=== PATIENT | female | born 1980 | race Caucasian/White ===

== ENCOUNTER 2016-04-07 09:02 | Inpatient (IN) | payer BC, MEDICAID ==
[2016-04-07] MEDS ORDERED: LACTATED RINGERS 1,000 ML ONE (09:34)
[2016-04-07] MEDS ORDERED: LACTATED RINGERS 500 ML IV ONE (09:36)
[2016-04-07] MEDS ORDERED: ePHEDrine SULFATE IV PRN ×2 (09:52→10:02)
[2016-04-07] MEDS ORDERED: NARCAN 2 MG/2 ML IV PRN (09:52)
[2016-04-07] MEDS ORDERED: PITOCin 20 UNIT in NACL 0.9% 1000 ML 1,000 ML IV SCH (10:00)
[2016-04-07] MEDS ORDERED: fentaNYL-BUPIV 2 MCG/ML-0.125% 200 MCG/100 ML BAG EPIDURAL SCH (10:00)
[2016-04-07] MEDS ORDERED: SUBLIMAZE IV ONE (10:00)
[2016-04-07 10:01] LABS: Basophils % (Auto) 0.2 % (0.0-1.8); Eosinophils % (Auto) 0.9 % (0.0-4.3); Hematocrit 37.3 % (30.3-42.9); Hemoglobin 12.4 gm/dl (10.1-14.3); Mean Corpuscular HGB Conc 33 % (30-34); Mean Corpuscular Hemoglobin 31 pg (28-32); Mean Corpuscular Volume 93 fl (79-97); Platelet Count 205 K/mm3 (140-440); Red Cell Distribution Width 14.2 % (13.2-15.2)
[2016-04-07] MEDS ORDERED: BRETHINE SUB-Q PRN (10:02)
[2016-04-07] MEDS ORDERED: MINERAL OIL PO PRN (10:02)
[2016-04-07] MEDS ORDERED: BRETHINE IVP PRN (10:02)
[2016-04-07] MEDS ORDERED: ePHEDrine SULFATE ONE (10:20)
--- NOTE | 2016-04-07 10:26 | History and Physical Report ---
History of Present Illness Date of examination: 04/07/16 Date of admission: 04/07/16 09:17 Chief complaint: contractions History of present illness: Pt c/o contractions that started last pm but worsened this am around 8am. Contractions are every 3 minutes. No ROM, no vaginal bleeding. 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 # 3 Delivery date: 04/18/2015 Weeks Gestation: 38 Delivery type: Vaginal Anesthesia type: epidural Delivery location: [facility] Sex: male weight: 7.56 Name: Sathish Comments: none Past Medical History: Reviewed history from 11/15/2014 and no changes required: Negative Past Medical History Past Surgical History: Reviewed history from 11/15/2014 and no changes required: negative Past Medical History Anesthesia Complications: negative Anemia: negative Autoimmune Disorder: negative Bleeding Disorder: negative Blood Transfusions: negative Breast Disease: negative Diabetes: negative Heart Disease: negative Hypertension: negative Hepatitis/Liver Disease: negative Kidney Disease/UTI: negative Neurologic/Epilepsy/Migraines: negative Phlebitis/Varicosities: negative Psychiatric: negative Pulmonary Disease/Asthma: negative Thyroid Disease: negative Hospitalizations: negative 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 Infection History Hx of STD: none HIV Risk Eval: no Hepatitis B Risk Eval: low risk Personal hx. of genital herpes: no Partner hx. of genital herpes: no Rash, Viral, or Febrile illness since last LMP? no Varicella/Chicken Pox Status: Previous Disease Genetic History Congenital Heart Defect: Mom: no Dad: no Mauri Disease: Mom: no Dad: no Thalassemia Mom: no Dad: no Neural Tube Defect Mom: no Dad: no Down's Syndrome Mom: no Dad: no Romeo-Sachs Mom: no Dad: no Sickle Cell Disease/Trait Mom: no Dad: no Hemophilia Mom: no Dad: no Muscular Dystrophy Mom: no Dad: no Cystic Fibrosis Mom: no Dad: no [place] Chorea Mom: no Dad: no Mental Retardation Mom: no Dad: no Fragile X Mom: no Dad: no Other Genetic/Chromosomal Disorder Mom: no Dad: no Child w/other defect Mom: no Dad: no Enviromental Exposures Xray Exposure: no Medication, drug, or alcohol use since LMP: no Chemical/Other Exposure: no Exposure to Cat Liter: no Hx of Parvovirus (Fifth Disease): no Occupational Exposure to Children: none Active Medications (reviewed today): None Current Allergies (reviewed today): No known allergies Laboratory Results Past History Past Medical History: no pertinent history Past Surgical History: no surgical history 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 Social history: no significant social history, - Obstetrical History Expected Date of Delivery: 04/09/16 Actual Gestation: 39 Week(s) 5 Day(s) : 4 Para: 3 Number of Living Children: 3 Medications and Allergies Allergies Allergy/AdvReac Type Severity Reaction Status Date / Time No Known Allergies Allergy Verified 04/18/15 05:45 Home Medications Medication Instructions Recorded Confirmed Last Taken Type Pnv Plus Multivit Tab 1 tab PO DAILY 04/18/15 04/18/15 1 Day Ago History 1tab Lidocain2.5%/Prilocai2.5% [Emla] 5 gm TP PRN #1 tube 04/19/15 Unknown Rx Active Meds: Active Medications Ephedrine Sulfate (Ephedrine Sulfate) 10 mg IV Q2M PRN PRN Reason: Hypotension Stop: 04/07/16 10:07 Oxytocin 20 unit/ Sodium (Chloride) 1,002 mls @ 0 mls/hr IV DIRECT RADHA PRN Reason: As Directed Fentanyl/Bupivacaine/Sodium Chlor (Fentanyl-Bupiv 2 Mcg/Ml-0.125%) 200 mcg in 100 mls @ 12 mls/hr EPIDURAL TITR RADHA PRN Reason: Protocol Lactated Ringer's (Lactated Ringers) 1,000 mls @ 125 mls/hr IV DIRECT RADHA Oxytocin/Sodium Chloride (Pitocin/Ns 20 Unit/1000ml Drip) 20 units in 1,000 mls @ 125 mls/hr IV DIRECT RADHA Oxytocin/Sodium Chloride (Pitocin/Ns 30 Unit/500ml) 30 units in 500 mls @ 1 mls /hr IV TITR RADHA; 1 MILLIUNITS/MIN PRN Reason: Protocol Oxytocin/Sodium Chloride (Pitocin/Ns 30 Unit/500ml) 30 units in 500 mls @ 2 mls /hr IV TITR RADHA PRN Reason: Protocol Mineral Oil (Mineral Oil) 30 ml PO QHS PRN PRN Reason: Constipation Terbutaline Sulfate (Brethine) 0.25 mg SUB-Q ONCE PRN PRN Reason: Hyperstimulation/Hypertonicity Stop: 04/07/16 10:03 Terbutaline Sulfate (Brethine) 0.25 mg IVP ONCE PRN PRN Reason: Hyperstimulation/Hypertonicity Stop: 04/07/16 10:03 Review of Systems All systems: negative - Vital Signs Vital signs: Vital Signs Pulse BP Pulse Ox 82 118/83 99 04/07/16 09:34 04/07/16 09:34 04/07/16 09:34 Temp Pulse Resp BP Pulse Ox 96.1 F L 81 18 128/62 98 04/07/16 10:00 04/07/16 10:19 04/07/16 10:00 04/07/16 10:00 04/07/16 10:19 - Physical Exam Breasts: Positive: deferred Cardiovascular: Normal S1, Normal S2 Lungs: Positive: Clear to auscultation, Normal air movement Abdomen: Positive: normal appearance, soft, normal bowel sounds. Negative: distention, tenderness, guarding Vagina: Positive: normal moisture Extremities: Positive: normal. Negative: tenderness, edema - Obstetrical FHR: category 1 Cervical Dilatation: 7.5 Cervical Effacement Percentage: 90 station: 0 Uterine Contraction Pattern: Regular Uterine Tone Measurement Phase: Resting Uterine Contraction Intensity: Moderate Results Result Diagrams: 04/07/16 09:35 Abnormal lab results 04/07/16 Range/Units 09:35 Seg Neutrophils % 72.4 H (40.0-70.0) % All other labs normal. Assessment and Plan - Patient Problems (1) 39 weeks gestation of Current Visit: Yes Status: Acute (2) Active labor at term Current Visit: No Status: Acute Plan to address problem: -anticipate vaginal delivery -iv pain meds given until epidural can be placed
--- NOTE | 2016-04-07 10:28 | Anesthesia Consultation ---
Anesthesia Consult and Med Hx Date of service: 04/07/16 - Airway Anesthetic Teeth Evaluation: Good ROM Head & Neck: Adequate Mental/Hyoid Distance: Adequate Mallampati Class: Class II Intubation Access Assessment: Probably Good - Pulmonary Exam CTA: Yes - Cardiac Exam Cardiac Exam: RRR - Pre-Operative Health Status ASA Pre-Surgery Classification: ASA2 Proposed Anesthetic Plan: Epidural - Pulmonary Hx Asthma: No COPD: No Hx Pneumonia: No - Cardiovascular System Hx Hypertension: No - Central Nervous System Hx Seizures: No Hx Psychiatric Problems: No - Endocrine Hx Renal Disease: No Hx End Stage Renal Disease: No Hx Hypothyroidism: No Hx Hyperthyroidism: No - Hematic Hx Anemia: No Hx Sickle Cell Disease: No - Other Systems Hx Alcohol Use: No Hx Obesity: Yes
[2016-04-07] MEDS ORDERED: LACTATED RINGERS 1,000 ML IV SCH (11:00)
[2016-04-07] MEDS ORDERED: PITOCin/NS 30 UNIT/500ML 30 UNITS/500 ML BAG IV SCH ×2 (11:00)
--- NOTE | 2016-04-07 11:33 | Progress Note ---
Assessment and Plan - Patient Problems (1) 39 weeks gestation of Current Visit: Yes Status: Acute (2) Active labor at term Current Visit: No Status: Acute Plan to address problem: -anticipate vaginal delivery -epidural in place -AROM of clear fluid -will start pitocin at this time Subjective - Subjective Date of service: 04/07/16 Principal diagnosis: IUP 39 5/7 in active labor w/p AROM Interval history: Pt doing well with epidural in place. cx 8/90/0. AROM with clear fluid noted. Patient reports: new complaints, loss of fluid, movement normal, contractions, no vaginal bleeding Objective - Vital Signs Vital Signs: Vital Signs - 12hr 04/07/16 04/07/16 04/07/16 09:34 09:39 09:44 Temperature Pulse Rate 82 80 85 Respiratory Rate Blood Pressure 118/83 O2 Sat by Pulse 99 99 98 Oximetry 04/07/16 04/07/16 04/07/16 09:49 09:54 09:59 Temperature Pulse Rate 81 72 68 Respiratory Rate Blood Pressure 146/66 O2 Sat by Pulse 96 96 95 Oximetry 04/07/16 04/07/16 04/07/16 10:00 10:04 10:09 Temperature 96.1 F L Pulse Rate 64 70 78 Respiratory 18 Rate Blood Pressure 128/62 O2 Sat by Pulse 96 96 Oximetry 04/07/16 04/07/16 04/07/16 10:14 10:19 10:24 Temperature Pulse Rate 71 81 65 Respiratory Rate Blood Pressure O2 Sat by Pulse 97 98 98 Oximetry 04/07/16 04/07/16 04/07/16 10:29 10:34 10:36 Temperature Pulse Rate 84 74 81 Respiratory Rate Blood Pressure 115/95 122/70 O2 Sat by Pulse 99 100 Oximetry 04/07/16 04/07/16 04/07/16 10:38 10:39 10:40 Temperature Pulse Rate 78 78 74 Respiratory Rate Blood Pressure 121/61 120/70 O2 Sat by Pulse 100 Oximetry 04/07/16 04/07/16 04/07/16 10:42 10:43 10:44 Temperature Pulse Rate 75 62 60 Respiratory Rate Blood Pressure 140/67 117/58 O2 Sat by Pulse 94 99 Oximetry 04/07/16 04/07/16 04/07/16 10:46 10:48 10:49 Temperature Pulse Rate 71 64 68 Respiratory Rate Blood Pressure 114/80 117/67 O2 Sat by Pulse 97 Oximetry 04/07/16 04/07/16 04/07/16 10:50 10:52 10:54 Temperature Pulse Rate 62 63 71 Respiratory Rate Blood Pressure 118/56 111/57 111/59 O2 Sat by Pulse 97 Oximetry 04/07/16 04/07/16 04/07/16 10:56 10:58 10:59 Temperature Pulse Rate 64 66 62 Respiratory Rate Blood Pressure 110/58 114/61 O2 Sat by Pulse 97 Oximetry 04/07/16 04/07/16 04/07/16 11:00 11:02 11:04 Temperature Pulse Rate 64 63 67 Respiratory Rate Blood Pressure 110/60 114/58 114/58 O2 Sat by Pulse 98 Oximetry 04/07/16 04/07/16 04/07/16 11:06 11:08 11:09 Temperature Pulse Rate 62 59 L 71 Respiratory Rate Blood Pressure 113/57 111/58 O2 Sat by Pulse 98 Oximetry 04/07/16 04/07/16 04/07/16 11:10 11:12 11:14 Temperature Pulse Rate 63 65 69 Respiratory Rate Blood Pressure 111/63 113/61 112/61 O2 Sat by Pulse 98 Oximetry 04/07/16 04/07/16 04/07/16 11:16 11:18 11:19 Temperature Pulse Rate 61 61 65 Respiratory Rate Blood Pressure 117/65 114/61 O2 Sat by Pulse 98 Oximetry 04/07/16 04/07/16 04/07/16 11:20 11:24 11:25 Temperature Pulse Rate 65 65 60 Respiratory Rate Blood Pressure 120/62 134/63 O2 Sat by Pulse 99 Oximetry 04/07/16 04/07/16 11:26 11:28 Temperature Pulse Rate 71 59 L Respiratory Rate Blood Pressure 117/57 112/57 O2 Sat by Pulse Oximetry - Exam FHR: category 1 Cervical Dilatation: 8.5 Cervical Effacement Percentage: 95 station: 0 Uterine Contraction Pattern: Regular Uterine Tone Measurement Phase: Resting Uterine Contraction Intensity: Mild - Labs Labs: Abnormal Labs 04/07/16 09:35 Seg Neutrophils % 72.4 H Laboratory Results - last 24 hr 04/07/16 04/07/16 09:35 09:35 WBC 6.0 RBC 4.00 Hgb 12.4 Hct 37.3 MCV 93 MCH 31 MCHC 33 RDW 14.2 Plt Count 205 Lymph % (Auto) 22.0 Giles % (Auto) 4.5 Eos % (Auto) 0.9 Baso % (Auto) 0.2 Lymph # 1.3 Giles # 0.3 Eos # 0.1 Baso # 0.0 Seg Neutrophils % 72.4 H Seg Neutrophils # 4.3 Blood Type O POSITIVE Antibody Screen Negative
[2016-04-07] MEDS: PITOCin/NS 20 UNIT/1000ML DRIP 20 UNITS/1,000 ML BAG IV SCH ×2 (12:57→14:00)
--- NOTE | 2016-04-07 13:08 | Procedure Note ---
OB Delivery Note - Delivery Date of Delivery: 04/07/16 Surgeon: RACHEL BAL Estimated blood loss: 200cc - Vaginal Delivery presentation: vertex Delivery position: OA Delivery induction: none Delivery augmentation: rupture of membranes Delivery monitor: external FHT, external uterine Route of delivery: Delivery placenta: spontaneous Delivery cord: 3 umbilical vessels Episiotomy: none Delivery laceration: none Anesthesia: epidural Delivery comments: Delivery as above without complications. Ant shoulder and rest of delivered without difficulty. There was no nuchal cord or shoulder dystocia. Infant was placed on maternal abdomen. Cord clamped times two and cut times one. Placenta delivered spontaneously intact. No lacerations. EBL 200ml. Mother and infant stable in LDR. - A at 1 minute: 8 (weight 7lbs 5oz) at 5 minutes: 9 Infant Gender: Male
[2016-04-07] MEDS ORDERED: TUCKS PAD TP PRN (13:09)
[2016-04-07] MEDS ORDERED: DERMOPLAST TP PRN (13:09)
[2016-04-07] MEDS ORDERED: BENADRYL PO PRN (13:09)
[2016-04-07] MEDS ORDERED: TYLENOL PO PRN (13:09)
[2016-04-07] MEDS ORDERED: LANSINOH TP PRN (13:09)
[2016-04-07] MEDS ORDERED: SODIUM CHLORIDE FLUSH SYRINGE 10 ML IV NR (14:00)
[2016-04-07] MEDS ORDERED: ZOFRAN IV PRN (14:00)
[2016-04-07] MEDS: MOTRIN PO SCH ×2 (18:30→20:10)
[2016-04-07] MEDS: COLACE PO SCH (21:54)
[2016-04-07] MEDS ORDERED: ANUCORT-HC PR PRN (22:00)
[2016-04-07] MEDS ORDERED: MILK OF MAGNESIA PO PRN (22:00)
[2016-04-07] MEDS ORDERED: DULCOLAX PR PRN (22:00)
[2016-04-08] MEDS: MOTRIN PO SCH ×2 (02:00→12:35)
[2016-04-08 02:49] LABS: Hematocrit 29.1 % (30.3-42.9); Hemoglobin 9.6 gm/dl (10.1-14.3)
--- NOTE | 2016-04-08 06:23 | Discharge Summary ---
Providers - Providers Date of Admission: 04/07/16 09:17 Date of discharge: 04/08/16 (pt agrees with d/c) Attending physician: RACHEL BAL Primary care physician: RACHEL BAL Hospitalization Reason for admission: active labor Delivery: Episiotomy: none Laceration: none Incision: normal Other procedures: none complications: none Discharge diagnosis: IUP at term delivered [place] baby: male Hospital course: uncomplicated vaginal delivery Pt w/o complaint VSS FF below umb Lochia small perineum intact H&H 11/08 drop r/ t blood loss from delivery Pt w/o s/sx of anemia. Doing well s/p vag delivery P : d/c today with instructions RTO 4 weeks RX provided for circ in 1 week Condition at discharge: Good Disposition: DISCHARGED TO HOME OR SELFCARE - Discharge Diagnoses (1) (normal spontaneous vaginal delivery) Status: Acute Comment: pt will call for f/u in 4 weeks Plan - Discharge Medications Prescriptions: Ibuprofen [Motrin 800 MG tab] 800 mg PO TID PRN #30 tablet PRN Reason: Pain Lidocain2.5%/Prilocai2.5% [Emla] 5 gm TP PRN #1 tube - Provider Discharge Summary Activity: routine, no sex for 6 weeks, no heavy lifting 4 weeks, no strenuous exercise Diet: routine Instructions: routine Additional instructions: [] Smoking cessation referral if applicable(refer to patient education folder for contact #) [] Refer to [facility] Booklet Call your doctor immediately for: * Fever > 100.5 * Heavy vaginal bleeding ( >1 pad per hour) * Severe persistent headache * Shortness of breath * Reddened, hot, painful area to leg or breast * Drainage or odor from incision. * Keep incision clean and dry at all times and follow doctor's instructions regarding bathing/showering - Follow up plan Follow up: RACHEL BAL MD [Primary Care Provider] - 7 Days (Congratulations! Please call [phone] to schedule your visit in 4 weeks.Please schedule your son's circumcision in 1 week. Bring the EMLA cream with you to his visit. Take medication as prescribed. Call with concerns.)
[2016-04-08] MEDS: COLACE PO SCH (09:47)
[2016-04-08 15:08] VITALS: BP 116/62
== END 2016-04-08 14:45 | disposition home or self-care (01) | DRG 775 ==
LOC: TRG 09:02 → LD 09:17 → OB 15:07
PROVIDERS: ADMIT Obstetrics & Gynecology; ATTEND Obstetrics & Gynecology
PROC: 10E0XZZ Delivery of Products of Conception, External Approach (ICD-10-PCS; principal; 2016-04-07)
PROC: 10907ZC Drainage of Amniotic Fluid, Therapeutic from Products of Conception, Via Natural or Artificial Opening (ICD-10-PCS; 2016-04-07)
PROC: 00HU33Z Insertion of Infusion Device into Spinal Canal, Percutaneous Approach (ICD-10-PCS; 2016-04-07)
PROC: 3E0R3CZ (ICD-10-PCS; 2016-04-07)
DX: O99.214 Obesity complicating childbirth (principal); R71.0 Precipitous drop in hematocrit; E66.9 Obesity, unspecified; O75.89 Other specified complications of labor and delivery; Z3A.39 39 weeks gestation of pregnancy; Z37.0 Single live birth; Z68.34 Body mass index [BMI] 34.0-34.9, adult
CPT/HCPCS: 36415; 85014; 85018; 85025; 86592; 86850; 86900; 86901; 99211; A6250; G0463; J2590; J3010; J7120

== ENCOUNTER 2019-02-08 10:05 | Inpatient (IN) | payer BC, MEDICAID ==
[2019-02-08] MEDS ORDERED: LACTATED RINGERS 1,000 ML IV ONE (12:45)
--- NOTE | 2019-02-08 14:25 | Ultrasound Report ---
ULTRASOUND OBSTETRIC INDICATION: Evaluate amniotic fluid index and estimated weight. History of vaginal discharge and cramping f or 2 days. Clinical Gestational Age (GA): 20 weeks, 5 days TECHNIQUE: Transabdominal. COMPARISON: None available. FINDINGS: There is a single intrauterine . Biparietal Diameter = 7.6 cm = 30 weeks, 3 day(s). Head Circumference = 27.6 cm = 30 weeks, 1 day(s). Abdominal Circumference = 26.8 cm = 30 weeks, 6 day(s). Femur Length = 5.3 cm = 28 weeks, 1 day(s). Average Ultrasound Age (AUA) = 29 weeks, 6 day(s). Heart Rate: 149 beats per minute. Estimated Weight in grams (if calculated): 1481 Position: cephalic. Cervix: closed. Length in cm (if measured): 4.1 Placenta: posterior and free of the os. Amniotic Fluid Volume: normal Amniotic Fluid Index (CALIN) in cm (if calculated): 15.6. Maternal Adnexa: No significant abnormality. IMPRESSION: 1. Single, living intrauterine with estimated sonographic age of 29 weeks, 6 day(s). 2. No significant sonographic abnormality. Signer Name: Dillon Larson MD Signed: 02/08/2019 2:21 PM Workstation Name: [id number]
[2019-02-08] MEDS ORDERED: TERBUTALINE 1 MG/1 ML INJ SUB-Q ONE (16:22)
[2019-02-08] MEDS ORDERED: ALUM-MAG HYDROXIDE-SIMETHICONE 200-200-20MG/5ML ORAL LIQD 30 ML PO PRN (17:01)
[2019-02-08] MEDS ORDERED: AMPICILLIN/NS 2 GM/100 ML 2 GM/100 ML BAG IV ONE (17:01)
[2019-02-08] MEDS ORDERED: ACETAMINOPHEN 325 MG TAB PO PRN (17:01)
[2019-02-08] MEDS ORDERED: DOCUSATE SODIUM 100 MG CAP PO PRN (17:01)
[2019-02-08] MEDS ORDERED: SIMETHICONE 80 MG CHEW TAB PO PRN (17:01)
[2019-02-08] MEDS ORDERED: SENNOSIDES/DOCUSATE SODIUM 8.6/50 MG TAB PO PRN (17:01)
--- NOTE | 2019-02-08 17:01 | History and Physical Report ---
History of Present Illness Date of examination: 02/08/19 Date of admission: 02/08/19 10:06 History of present illness: Patient presented to triage with complaints of low abdominal pain and increase in since this a.m. Patient also complain of some vaginal discharge and spotting for the last 2 days. Patient states last intercourse was approximately 3 days ago. Initially evaluation patient in triage she had sporadic contractions and RN cervical exam was fingertip thick. Patient was given IV fluids and underwent a ultrasound rule out possible ruptured membranes. The patient's observation states the pain became more severe and recheck by the same nurse revealed her cervix changed to 2 cm and more effaced. Patient admitted for change in cervix what appears to be premature labor. 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 no EDC Calculations LMP: 04/28/2019 EDC Confirmation: 04/28/2019 Past History : 6 Term Births: 4 Living Children: 4 Para: 3 Aborta: 0 Spont. 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 # 3 Delivery date: 04/18/2015 Weeks Gestation: 38 Delivery type: Vaginal Anesthesia type: epidural Delivery location: [facility] Sex: male weight: 7.56 Name: Sathish Comments: none # 4 Delivery date: 04/07/2016 Weeks Gestation: 39.5 Delivery type: Vaginal Anesthesia type: epidural Delivery location: [facility] Sex: female weight: 7.19 Name: DARCY Comments: none Past Medical History: Negative Past Medical History Past Surgical History: negative Past Medical History Abnormal PAP: negative ZARA Exposure: negative Infertility: negative Uterine Anomaly: negative Uterine Surgery (not C/S): negative Other Gynecologic Problems: negative Social Hx: Patient is recently unemployed Smoking History: Patient has never smoked. Infection History Hx of STD: none Partner hx. of genital herpes: no Rash, Viral, or Febrile illness since last LMP? no Varicella/Chicken Pox Status: Previous Disease Genetic History ADVANCED MATERNAL AGE Congenital Heart Defect: Mom: no Dad: no Mauri Disease: Mom: no Dad: no Thalassemia Mom: no Dad: no Neural Tube Defect Mom: no Dad: no Down's Syndrome Mom: no Dad: no Romeo-Sachs Mom: no Dad: no Sickle Cell Disease/Trait Mom: no Dad: no Hemophilia Mom: no Dad: no Muscular Dystrophy Mom: no Dad: no Cystic Fibrosis Mom: no Dad: no [place] Chorea Mom: no Dad: no Mental Retardation Mom: no Dad: no Fragile X Mom: no Dad: no Other Genetic/Chromosomal Disorder Mom: no Dad: no Child w/other defect Mom: no Dad: no Enviromental Exposures Xray Exposure: no Medication, drug, or alcohol use since LMP: no Chemical/Other Exposure: no Exposure to Cat Liter: no Hx of Parvovirus (Fifth Disease): no Occupational Exposure to Children: none Current Allergies (reviewed today): No known allergies Past History Past Medical History: other (see HPI) Past Surgical History: other (see 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) 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 (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 HPI) Family/Genetic History: other (see HPI) Social history: full code, other (see HPI) - Obstetrical History Expected Date of Delivery: 04/28/19 Actual Gestation: 28 Week(s) 5 Day(s) : 6 Para: 4 Hx # Term Pregnancies: 3 Number of Pregnancies: 0 Spontaneous Abortions: 1 Induced : 0 Number of Living Children: 3 Medications and Allergies Allergies Allergy/AdvReac Type Severity Reaction Status Date / Time No Known Allergies Allergy Verified 04/18/15 05:45 Home Medications Medication Instructions Recorded Confirmed Last Taken Type Pnv Plus Multivit Tab 1 tab PO DAILY 04/18/15 04/18/15 1 Day Ago History ~04/17/15 1 tab Lidocain2.5%/Prilocai2.5% [Emla] 5 gm TP PRN #1 tube 04/19/15 Unknown Rx Ibuprofen [Motrin 800 MG tab] 800 mg PO TID PRN #30 tablet 04/08/16 Unknown Rx Lidocain2.5%/Prilocai2.5% [Emla] 5 gm TP PRN #1 tube 04/08/16 Unknown Rx - Vital Signs Vital signs: Vital Signs Pulse BP Pulse Ox 97 H 111/56 100 02/08/19 10:40 02/08/19 10:40 02/08/19 10:40 Temp Pulse Resp BP Pulse Ox 98.3 F 101 H 18 111/56 99 02/08/19 10:42 02/08/19 11:05 02/08/19 10:42 02/08/19 10:42 02/08/19 11:05 - Physical Exam Breasts: Positive: deferred Cardiovascular: Regular rate Lungs: Positive: Normal air movement Abdomen: Positive: normal appearance Genitourinary (Female): Positive: normal external genitalia Vagina: Positive: normal moisture Cervix: Positive: other (per RN) Extremities: Positive: normal - Obstetrical FHR: category 1 Uterine Contraction Monitor Mode: External Uterine Contraction Pattern: Irregular Results All other labs normal. Assessment and Plan - Patient Problems (1) Premature labor affecting sixth Current Visit: Yes Status: Acute Plan to address problem: We'll admit patient. We'll start tocolysis. Administer betamethasone. Perform serial exams
[2019-02-08] MEDS ORDERED: MAGNESIUM SULFATE 4 GM/100 ML BAG IV ONE (17:07)
[2019-02-08] MEDS ORDERED: LACTATED RINGERS 1,000 ML IV SCH (18:00)
[2019-02-08] MEDS ORDERED: BETAMET ACET/BETAMET NA PH 6 MG/ML INJ 5 ML MDV IM SCH (18:00)
[2019-02-08] MEDS ORDERED: MAGNESIUM SULFATE 40GM/1000ML 40 GM/1,000 ML BAG IV SCH ×2 (18:00→23:00)
[2019-02-08] MEDS ORDERED: BUTORPHANOL 2 MG/1 ML INJ IV PRN (18:12)
--- NOTE | 2019-02-08 18:44 | Event Note ---
Date: 02/08/19 Patient complaining of pressure. #4 exam patient's cervix now was changed to 3 cm 90% effaced -2 station. Patient has received bolus of magnesium sulfate. Discussed the patient diagnoses of premature labor and difficulty of stopping premature labor. Discussed the role of magnesium sulfate and betamethasone. Patient questions are answered. We'll continue toco lysis of present also obtain a NICU consult to discuss with patient the function of the intensive care nursery.
[2019-02-08 19:55] LABS: Hematocrit 31.2 % (30.3-42.9); Hemoglobin 10.7 gm/dl (10.1-14.3); Mean Corpuscular HGB Conc 34 % (30-34); Mean Corpuscular Volume 96 fl (79-97); Platelet Count 230 K/mm3 (140-440); Red Blood Count 3.25 M/mm3 (3.65-5.03); Red Cell Distribution Width 14.2 % (13.2-15.2)
[2019-02-08 20:15] LABS: Alanine Aminotransferase 9 units/L (7-56); Albumin 3.1 g/dL (3.9-5); BUN/Creatinine Ratio 13; Blood Urea Nitrogen 5 mg/dL (7-17); Calcium 8.1 mg/dL (8.4-10.2); Hemolysis Index 3
[2019-02-08 20:47] LABS: Basophils % (Manual) 0 % (0.0-1.8); Eosinophils % (Manual) 0 % (0.0-4.3); Total Cells Counted 100
[2019-02-08 20:48] LABS: RBC Morphology Normal
--- NOTE | 2019-02-08 20:56 | Consultation ---
Consult Note - Parent Education I met with parent(s) and discussed the following:: Need for NICU admission, Poss ible need for intubation and surfactant or other resp support, Temperature regulation, Head ultrasounds to evaluate IVH, Eye exams for ROP screening, Possible need for IV fluids/TPN and IV antibiotics, Possible need for umbilical lines, Importance of providing breast milk & encouraged pumping aft delivery (mother is interested in EBM/DBM), Donor breast milk if baby meets criteria after , Slow feeding advancement and monitoring of tolerance. NG/OG feeds, Need to monitor for jaundice, Data for survival & survival without significant co-morbidities Parent(s) demonstrated understanding of all the information:: Yes Assessment and Plan - Assessment Gestation:: 28 (28 5/7 weeker) Estimated Weight: 1481 grams Baby's gender: Female Baby's name: N/A Additional Comment: 38YO mother who present with vaginal discharge and cramping for 2 days, in active PTL. received x1 beta. Anticipate 2nd dose 02/09. Mother on mag and ampicillin. Estimate weight 1481 gms on US. - Plan Plan: Agree with Mag & steroids Will attend delivery Please call NICU with questions
--- NOTE | 2019-02-08 22:49 | Event Note ---
Date: 02/08/19 Tracing stable contractions appear to be spacing Patient states drifting off to sleep c/o contraction
[2019-02-08] MEDS ORDERED: ePHEDrine SULFATE 50 MG/1 ML INJ ONE (23:17)
[2019-02-08] MEDS ORDERED: NALOXONE 2 MG/2 ML INJ IV PRN (23:39)
[2019-02-08] MEDS ORDERED: ePHEDrine SULFATE 50 MG/1 ML INJ IV PRN (23:39)
--- NOTE | 2019-02-08 23:40 | Anesthesia Consultation ---
Anesthesia Consult and Med Hx Date of service: 02/08/19 - Airway Anesthetic Teeth Evaluation: Good ROM Head & Neck: Adequate Mental/Hyoid Distance: Adequate Mallampati Class: Class II Intubation Access Assessment: Probably Good - Pulmonary Exam CTA: Yes - Cardiac Exam Cardiac Exam: RRR - Pre-Operative Health Status ASA Pre-Surgery Classification: ASA2 Proposed Anesthetic Plan: Epidural - Pulmonary Hx Asthma: No COPD: No Hx Pneumonia: No - Cardiovascular System Hx Hypertension: No - Central Nervous System Hx Seizures: No Hx Psychiatric Problems: No - Endocrine Hx Renal Disease: No Hx End Stage Renal Disease: No Hx Hypothyroidism: No Hx Hyperthyroidism: No - Hematic Hx Anemia: No Hx Sickle Cell Disease: No - Other Systems Hx Alcohol Use: No
[2019-02-08] MEDS ORDERED: DEXMEDETOMIDINE 200 MCG/2 ML VIAL IV ONE (23:43)
[2019-02-08] MEDS ORDERED: SODIUM CHLORIDE P/F VIAL 10 ML 10 ML ONE (23:43)
[2019-02-09] MEDS: AMPICILLIN/NS 1 GM/50 ML 1 GM/50 ML BAG IV SCH ×3 (00:10→12:00)
[2019-02-09] MEDS: fentaNYL-BUPIV 2 MCG/ML-0.125% 200 MCG/100 ML BAG EPIDURAL SCH ×2 (00:30→08:48)
--- NOTE | 2019-02-09 03:49 | Event Note ---
Date: 02/09/19 Called by RN soon after I left the hospital due patient due patient c/o increased pressure with contractions q 2-3 minutes and bloody show. cervical check now 4 -5cm per RN. Spoke to patient via phone Patient states she feels like she is in labor and about to deliver. Patient desires epidural. Discuused stopping tocolysis and allowing expectant management with risk of delivering an premature . Patient desired expectant management with epidural. RN reports patient now resting after epidural. Contractions q 8 minutes
--- NOTE | 2019-02-09 06:38 | Progress Note ---
Assessment and Plan - Patient Problems (1) Vaginal bleeding Onset Date: ~02/09/19 Current Visit: Yes Status: Acute Plan to address problem: Noted dark red clots moderate amt on pad and vagina SVE 6,100 Could palpate clots therefore did not palpate presenting part. Dr. Pearson notified of all findings (2) 28 weeks gestation of Onset Date: ~02/09/19 Current Visit: Yes Status: Acute (3) labor in third trimester Onset Date: ~02/09/19 Current Visit: Yes Status: Acute Qualifiers: Fetus number: single or unspecified fetus Plan to address problem: 38yo @ 28w6d with PTL, vaginal bleeding Pt has chosen expectant mgt. Epidural in place. BMZ 1st dose given 02-08-19 @ 1426 given report of my findings. Subjective - Subjective Date of service: 02/09/19 (pt comfortable with epidural) Principal diagnosis: IUP @ 28w6d labor Advanced dilatation Patient reports: vaginal bleeding (moderate amt of blood noted on pad and vagina) Objective - Vital Signs Vital Signs: Vital Signs - 12hr 02/08/19 02/08/19 02/08/19 18:36 18:41 18:45 Temperature Pulse Rate 95 H 97 H 98 H Respiratory 20 Rate Blood Pressure Blood Pressure 111/54 [Left] Blood Pressure [Right] O2 Sat by Pulse 99 99 99 Oximetry 02/08/19 02/08/19 02/08/19 18:46 18:47 18:51 Temperature Pulse Rate 95 H 98 H 97 H Respiratory Rate Blood Pressure 111/54 109/53 Blood Pressure [Left] Blood Pressure [Right] O2 Sat by Pulse 99 99 Oximetry 02/08/19 02/08/19 02/08/19 18:56 19:01 19:06 Temperature Pulse Rate 95 H 101 H 101 H Respiratory Rate Blood Pressure Blood Pressure [Left] Blood Pressure [Right] O2 Sat by Pulse 100 99 96 Oximetry 02/08/19 02/08/19 02/08/19 19:08 19:10 19:11 Temperature 97.7 F Pulse Rate 106 H 97 H 97 H Respiratory 18 Rate Blood Pressure Blood Pressure [Left] Blood Pressure 107/59 [Right] O2 Sat by Pulse 94 97 96 Oximetry 02/08/19 02/08/19 02/08/19 19:13 19:16 19:21 Temperature Pulse Rate 97 H 97 H 98 H Respiratory Rate Blood Pressure 107/59 Blood Pressure [Left] Blood Pressure [Right] O2 Sat by Pulse 93 95 Oximetry 02/08/19 02/08/19 02/08/19 19:25 19:26 19:30 Temperature Pulse Rate 109 H 101 H 95 H Respiratory Rate Blood Pressure Blood Pressure [Left] Blood Pressure [Right] O2 Sat by Pulse 94 95 94 Oximetry 02/08/19 02/08/19 02/08/19 19:31 19:36 19:41 Temperature Pulse Rate 95 H 103 H 98 H Respiratory Rate Blood Pressure Blood Pressure [Left] Blood Pressure [Right] O2 Sat by Pulse 94 94 95 Oximetry 02/08/19 02/08/19 02/08/19 19:43 19:46 19:48 Temperature Pulse Rate 95 H 94 H 94 H Respiratory Rate Blood Pressure Blood Pressure [Left] Blood Pressure [Right] O2 Sat by Pulse 94 96 94 Oximetry 02/08/19 02/08/19 02/08/19 19:51 19:56 20:01 Temperature Pulse Rate 92 H 100 H 98 H Respiratory Rate Blood Pressure Blood Pressure [Left] Blood Pressure [Right] O2 Sat by Pulse 97 96 96 Oximetry 02/08/19 02/08/19 02/08/19 20:04 20:06 20:11 Temperature Pulse Rate 92 H 96 H 98 H Respiratory Rate Blood Pressure Blood Pressure [Left] Blood Pressure [Right] O2 Sat by Pulse 94 96 94 Oximetry 02/08/19 02/08/19 02/08/19 20:16 20:18 20:21 Temperature Pulse Rate 95 H 95 H 90 Respiratory Rate Blood Pressure Blood Pressure [Left] Blood Pressure [Right] O2 Sat by Pulse 97 94 96 Oximetry 02/08/19 02/08/19 02/08/19 20:23 20:26 20:31 Temperature Pulse Rate 92 H 96 H 94 H Respiratory Rate Blood Pressure Blood Pressure [Left] Blood Pressure [Right] O2 Sat by Pulse 94 95 98 Oximetry 02/08/19 02/08/19 02/08/19 20:32 20:36 20:38 Temperature Pulse Rate 98 H 91 H 90 Respiratory Rate Blood Pressure 114/58 Blood Pressure [Left] Blood Pressure [Right] O2 Sat by Pulse 94 96 Oximetry 02/08/19 02/08/19 02/08/19 20:41 20:46 20:51 Temperature Pulse Rate 93 H 94 H 90 Respiratory Rate Blood Pressure Blood Pressure [Left] Blood Pressure [Right] O2 Sat by Pulse 95 96 96 Oximetry 02/08/19 02/08/19 02/08/19 20:52 20:56 21:01 Temperature Pulse Rate 95 H 88 95 H Respiratory Rate Blood Pressure Blood Pressure [Left] Blood Pressure [Right] O2 Sat by Pulse 94 96 96 Oximetry 02/08/19 02/08/19 02/08/19 21:06 21:08 21:11 Temperature Pulse Rate 95 H 88 79 Respiratory Rate Blood Pressure Blood Pressure [Left] Blood Pressure [Right] O2 Sat by Pulse 97 94 100 Oximetry 02/08/19 02/08/19 02/08/19 21:12 21:16 21:20 Temperature Pulse Rate 82 90 Respiratory 19 Rate Blood Pressure Blood Pressure [Left] Blood Pressure [Right] O2 Sat by Pulse 100 100 94 Oximetry 02/08/19 02/08/19 02/08/19 21:21 21:27 21:32 Temperature Pulse Rate 85 84 84 Respiratory Rate Blood Pressure 103/64 Blood Pressure [Left] Blood Pressure [Right] O2 Sat by Pulse 95 97 96 Oximetry 02/08/19 02/08/19 02/08/19 21:37 21:38 21:42 Temperature Pulse Rate 76 81 89 Respiratory Rate Blood Pressure 102/50 Blood Pressure [Left] Blood Pressure [Right] O2 Sat by Pulse 99 99 Oximetry 02/08/19 02/08/19 02/08/19 21:47 21:49 21:52 Temperature Pulse Rate 82 95 H 82 Respiratory Rate Blood Pressure Blood Pressure [Left] Blood Pressure [Right] O2 Sat by Pulse 99 94 99 Oximetry 02/08/19 02/08/19 02/08/19 21:57 22:02 22:04 Temperature Pulse Rate 83 89 Respiratory 20 Rate Blood Pressure Blood Pressure [Left] Blood Pressure [Right] O2 Sat by Pulse 99 94 Oximetry 02/08/19 02/08/19 02/08/19 22:07 22:12 22:17 Temperature Pulse Rate 82 85 87 Respiratory Rate Blood Pressure 106/53 Blood Pressure [Left] Blood Pressure [Right] O2 Sat by Pulse 94 95 94 Oximetry 02/08/19 02/08/19 02/08/19 22:22 22:23 22:27 Temperature Pulse Rate 91 H 97 H 84 Respiratory Rate Blood Pressure Blood Pressure [Left] Blood Pressure [Right] O2 Sat by Pulse 95 93 97 Oximetry 02/08/19 02/08/19 02/08/19 22:31 22:37 22:41 Temperature Pulse Rate 86 85 90 Respiratory Rate Blood Pressure Blood Pressure [Left] Blood Pressure [Right] O2 Sat by Pulse 97 97 98 Oximetry 02/08/19 02/08/19 02/08/19 22:46 22:51 22:57 Temperature Pulse Rate 83 90 86 Respiratory Rate Blood Pressure Blood Pressure [Left] Blood Pressure [Right] O2 Sat by Pulse 97 96 94 Oximetry 02/08/19 02/08/19 02/08/19 23:01 23:05 23:06 Temperature Pulse Rate 98 H 93 H 91 H Respiratory Rate Blood Pressure Blood Pressure [Left] Blood Pressure [Right] O2 Sat by Pulse 97 94 95 Oximetry 02/08/19 02/08/19 02/08/19 23:07 23:11 23:16 Temperature Pulse Rate 91 H 90 90 Respiratory Rate Blood Pressure 112/56 Blood Pressure [Left] Blood Pressure [Right] O2 Sat by Pulse 96 95 Oximetry 02/08/19 02/08/19 02/08/19 23:21 23:26 23:28 Temperature Pulse Rate 88 90 88 Respiratory Rate Blood Pressure Blood Pressure [Left] Blood Pressure [Right] O2 Sat by Pulse 97 97 94 Oximetry 02/08/19 02/08/19 02/08/19 23:31 23:33 23:36 Temperature Pulse Rate 96 H 93 H 94 H Respiratory Rate Blood Pressure Blood Pressure [Left] Blood Pressure [Right] O2 Sat by Pulse 95 94 97 Oximetry 02/08/19 02/08/19 02/08/19 23:41 23:46 23:47 Temperature Pulse Rate 83 81 98 H Respiratory Rate Blood Pressure Blood Pressure [Left] Blood Pressure [Right] O2 Sat by Pulse 96 94 94 Oximetry 02/08/19 02/08/19 02/08/19 23:51 23:54 23:56 Temperature Pulse Rate 96 H 93 H 96 H Respiratory Rate Blood Pressure 110/55 121/56 Blood Pressure [Left] Blood Pressure [Right] O2 Sat by Pulse 96 97 Oximetry 02/08/19 02/09/19 02/09/19 23:58 00:01 00:02 Temperature Pulse Rate 90 91 H 93 H Respiratory Rate Blood Pressure 111/53 128/67 115/55 Blood Pressure [Left] Blood Pressure [Right] O2 Sat by Pulse 95 94 Oximetry 02/09/19 02/09/19 02/09/19 00:04 00:06 00:08 Temperature Pulse Rate 93 H 87 85 Respiratory Rate Blood Pressure 108/53 109/53 108/53 Blood Pressure [Left] Blood Pressure [Right] O2 Sat by Pulse 96 Oximetry 02/09/19 02/09/19 02/09/19 00:10 00:11 00:12 Temperature Pulse Rate 86 88 90 Respiratory Rate Blood Pressure 106/52 107/54 Blood Pressure [Left] Blood Pressure [Right] O2 Sat by Pulse 94 95 Oximetry 02/09/19 02/09/19 02/09/19 00:16 00:17 00:21 Temperature Pulse Rate 91 H 85 88 Respiratory Rate Blood Pressure 104/50 Blood Pressure [Left] Blood Pressure [Right] O2 Sat by Pulse 96 93 95 Oximetry 02/09/19 02/09/19 02/09/19 00:22 00:26 00:27 Temperature Pulse Rate 82 85 85 Respiratory Rate Blood Pressure 102/51 103/54 Blood Pressure [Left] Blood Pressure [Right] O2 Sat by Pulse 94 94 Oximetry 02/09/19 02/09/19 02/09/19 00:31 00:34 00:36 Temperature Pulse Rate 86 81 84 Respiratory Rate Blood Pressure 100/52 Blood Pressure [Left] Blood Pressure [Right] O2 Sat by Pulse 95 94 95 Oximetry 02/09/19 02/09/19 02/09/19 00:37 00:39 00:41 Temperature Pulse Rate 82 85 81 Respiratory Rate Blood Pressure 102/54 Blood Pressure [Left] Blood Pressure [Right] O2 Sat by Pulse 94 95 Oximetry 02/09/19 02/09/19 02/09/19 00:46 00:47 00:51 Temperature Pulse Rate 77 78 81 Respiratory Rate Blood Pressure Blood Pressure [Left] Blood Pressure [Right] O2 Sat by Pulse 95 94 100 Oximetry 02/09/19 02/09/19 02/09/19 00:53 00:56 01:01 Temperature Pulse Rate 77 83 76 Respiratory Rate Blood Pressure 99/52 98/55 Blood Pressure [Left] Blood Pressure [Right] O2 Sat by Pulse 100 100 Oximetry 02/09/19 02/09/19 02/09/19 01:06 01:09 01:11 Temperature Pulse Rate 81 75 77 Respiratory Rate Blood Pressure 97/55 Blood Pressure [Left] Blood Pressure [Right] O2 Sat by Pulse 99 97 Oximetry 02/09/19 02/09/19 02/09/19 01:16 01:21 01:24 Temperature Pulse Rate 73 75 72 Respiratory Rate Blood Pressure 93/54 Blood Pressure [Left] Blood Pressure [Right] O2 Sat by Pulse 99 100 Oximetry 02/09/19 02/09/19 02/09/19 01:26 01:31 01:36 Temperature Pulse Rate 70 74 69 Respiratory Rate Blood Pressure Blood Pressure [Left] Blood Pressure [Right] O2 Sat by Pulse 99 100 100 Oximetry 02/09/19 02/09/19 02/09/19 01:40 01:41 01:46 Temperature Pulse Rate 69 69 83 Respiratory Rate Blood Pressure 96/52 Blood Pressure [Left] Blood Pressure [Right] O2 Sat by Pulse 100 99 Oximetry 02/09/19 02/09/19 02/09/19 01:51 01:54 01:56 Temperature Pulse Rate 85 77 79 Respiratory Rate Blood Pressure 93/53 Blood Pressure [Left] Blood Pressure [Right] O2 Sat by Pulse 99 95 Oximetry 02/09/19 02/09/19 02/09/19 01:58 02:01 02:06 Temperature Pulse Rate 84 83 73 Respiratory Rate Blood Pressure Blood Pressure [Left] Blood Pressure [Right] O2 Sat by Pulse 94 94 100 Oximetry 02/09/19 02/09/19 02/09/19 02:08 02:11 02:16 Temperature Pulse Rate 76 77 78 Respiratory Rate Blood Pressure 96/57 Blood Pressure [Left] Blood Pressure [Right] O2 Sat by Pulse 100 100 Oximetry 02/09/19 02/09/19 02/09/19 02:21 02:23 02:26 Temperature Pulse Rate 69 76 70 Respiratory Rate Blood Pressure 100/57 Blood Pressure [Left] Blood Pressure [Right] O2 Sat by Pulse 100 100 Oximetry 02/09/19 02/09/19 02/09/19 02:31 02:36 02:38 Temperature Pulse Rate 69 74 69 Respiratory Rate Blood Pressure 96/56 Blood Pressure [Left] Blood Pressure [Right] O2 Sat by Pulse 100 98 Oximetry 02/09/19 02/09/19 02/09/19 02:41 02:46 02:51 Temperature Pulse Rate 69 68 66 Respiratory Rate Blood Pressure Blood Pressure [Left] Blood Pressure [Right] O2 Sat by Pulse 99 99 99 Oximetry 02/09/19 02/09/19 02/09/19 02:53 02:56 03:01 Temperature Pulse Rate 76 75 82 Respiratory Rate Blood Pressure 98/56 Blood Pressure [Left] Blood Pressure [Right] O2 Sat by Pulse 100 99 Oximetry 02/09/19 02/09/19 02/09/19 03:06 03:09 03:11 Temperature Pulse Rate 80 80 75 Respiratory Rate Blood Pressure 103/59 Blood Pressure [Left] Blood Pressure [Right] O2 Sat by Pulse 99 99 Oximetry 02/09/19 02/09/19 02/09/19 03:16 03:21 03:24 Temperature Pulse Rate 83 83 75 Respiratory Rate Blood Pressure 105/56 Blood Pressure [Left] Blood Pressure [Right] O2 Sat by Pulse 100 98 Oximetry 02/09/19 02/09/19 02/09/19 03:26 03:31 03:36 Temperature Pulse Rate 73 71 72 Respiratory Rate Blood Pressure Blood Pressure [Left] Blood Pressure [Right] O2 Sat by Pulse 100 99 100 Oximetry 02/09/19 02/09/19 02/09/19 03:38 03:41 03:46 Temperature Pulse Rate 73 70 68 Respiratory Rate Blood Pressure 102/55 Blood Pressure [Left] Blood Pressure [Right] O2 Sat by Pulse 100 99 Oximetry 02/09/19 02/09/19 02/09/19 03:51 03:53 03:56 Temperature Pulse Rate 71 79 78 Respiratory Rate Blood Pressure 102/58 Blood Pressure [Left] Blood Pressure [Right] O2 Sat by Pulse 99 97 Oximetry 02/09/19 02/09/19 02/09/19 04:01 04:06 04:09 Temperature Pulse Rate 72 69 73 Respiratory Rate Blood Pressure 98/55 Blood Pressure [Left] Blood Pressure [Right] O2 Sat by Pulse 98 99 Oximetry 02/09/19 02/09/19 02/09/19 04:11 04:16 04:21 Temperature Pulse Rate 74 72 73 Respiratory Rate Blood Pressure Blood Pressure [Left] Blood Pressure [Right] O2 Sat by Pulse 98 98 97 Oximetry 02/09/19 02/09/19 02/09/19 04:24 04:26 04:31 Temperature Pulse Rate 79 82 84 Respiratory Rate Blood Pressure 101/59 Blood Pressure [Left] Blood Pressure [Right] O2 Sat by Pulse 96 98 Oximetry 02/09/19 02/09/19 02/09/19 04:36 04:38 04:41 Temperature Pulse Rate 79 83 84 Respiratory Rate Blood Pressure 99/58 Blood Pressure [Left] Blood Pressure [Right] O2 Sat by Pulse 99 96 Oximetry 02/09/19 02/09/19 02/09/19 04:46 04:51 04:53 Temperature Pulse Rate 82 79 81 Respiratory Rate Blood Pressure 102/59 Blood Pressure [Left] Blood Pressure [Right] O2 Sat by Pulse 99 99 Oximetry 02/09/19 02/09/19 02/09/19 04:56 05:01 05:06 Temperature Pulse Rate 88 81 84 Respiratory Rate Blood Pressure Blood Pressure [Left] Blood Pressure [Right] O2 Sat by Pulse 96 98 97 Oximetry 02/09/19 02/09/19 02/09/19 05:08 05:11 05:16 Temperature Pulse Rate 78 87 83 Respiratory Rate Blood Pressure 99/56 Blood Pressure [Left] Blood Pressure [Right] O2 Sat by Pulse 96 98 Oximetry 02/09/19 02/09/19 02/09/19 05:21 05:23 05:26 Temperature Pulse Rate 83 81 75 Respiratory Rate Blood Pressure 102/55 Blood Pressure [Left] Blood Pressure [Right] O2 Sat by Pulse 97 100 Oximetry 02/09/19 02/09/19 02/09/19 05:31 05:36 05:38 Temperature Pulse Rate 77 84 84 Respiratory Rate Blood Pressure 100/59 Blood Pressure [Left] Blood Pressure [Right] O2 Sat by Pulse 97 97 Oximetry 02/09/19 02/09/19 02/09/19 05:41 05:46 05:51 Temperature Pulse Rate 82 79 82 Respiratory Rate Blood Pressure Blood Pressure [Left] Blood Pressure [Right] O2 Sat by Pulse 95 95 99 Oximetry 02/09/19 02/09/19 02/09/19 05:53 05:56 06:01 Temperature Pulse Rate 83 87 81 Respiratory Rate Blood Pressure 110/61 Blood Pressure [Left] Blood Pressure [Right] O2 Sat by Pulse 96 96 Oximetry 02/09/19 02/09/19 02/09/19 06:03 06:06 06:08 Temperature Pulse Rate 82 77 77 Respiratory Rate Blood Pressure 100/58 Blood Pressure [Left] Blood Pressure [Right] O2 Sat by Pulse 94 94 Oximetry 02/09/19 02/09/19 02/09/19 06:09 06:11 06:16 Temperature Pulse Rate 89 91 H 88 Respiratory Rate Blood Pressure Blood Pressure [Left] Blood Pressure [Right] O2 Sat by Pulse 94 96 94 Oximetry 02/09/19 02/09/19 02/09/19 06:21 06:23 06:26 Temperature Pulse Rate 82 83 98 H Respiratory Rate Blood Pressure 102/58 Blood Pressure [Left] Blood Pressure [Right] O2 Sat by Pulse 96 96 Oximetry 02/09/19 06:31 Temperature Pulse Rate 94 H Respiratory Rate Blood Pressure Blood Pressure [Left] Blood Pressure [Right] O2 Sat by Pulse 97 Oximetry - Exam Abdomen: Present: normal appearance, soft. Absent: distention, tenderness Uterus: Present: normal FHR: auscultation normal, category 1 (occ variable noted ) Uterine Contraction Monitor Mode: External Cervical Dilatation: 6 Cervical Effacement Percentage: 100 Uterine Contraction Frequency (min): q4-6 Uterine Contraction Duration: 45-50 Uterine Contraction Pattern: Regular Uterine Tone Measurement Phase: Resting Uterine Contraction Intensity: Mild Extremities: normal Deep Tendon Reflex Grade: Normal +2 - Labs Labs: Abnormal Labs 02/08/19 02/08/19 02/09/19 19:32 19:32 00:36 WBC 12.4 H RBC 3.25 L MCH 33 H Seg Neuts % (Manual) 93.0 H Lymphocytes % (Manual) 5.0 L Seg Neutrophils # Man 11.5 H Lymphocytes # (Manual) 0.6 L Sodium 136 L Carbon Dioxide 21 L BUN 5 L Creatinine 0.4 L Glucose 118 H Calcium 8.1 L Magnesium 4.40 H Albumin 3.1 L Laboratory Results - last 24 hr 02/08/19 02/08/19 02/08/19 19:32 19:32 19:32 WBC 12.4 H RBC 3.25 L Hgb 10.7 Hct 31.2 MCV 96 MCH 33 H MCHC 34 RDW 14.2 Plt Count 230 Add Manual Diff Complete Total Counted 100 Seg Neutrophils % High Pressure Firer Seg Neuts % (Manual) 93.0 H Band Neutrophils % 0 Lymphocytes % (Manual) 5.0 L Reactive Lymphs % (Man) 0 Monocytes % (Manual) 2.0 Eosinophils % (Manual) 0 Basophils % (Manual) 0 Metamyelocytes % 0 Myelocytes % 0 Promyelocytes % 0 Blast Cells % 0 Nucleated RBC % Not Reportable Seg Neutrophils # Man 11.5 H Band Neutrophils # 0.0 Lymphocytes # (Manual) 0.6 L Abs React Lymphs (Man) 0.0 Monocytes # (Manual) 0.2 Eosinophils # (Manual) 0.0 Basophils # (Manual) 0.0 Metamyelocytes # 0.0 Myelocytes # 0.0 Promyelocytes # 0.0 Blast Cells # 0.0 WBC Morphology Not Reportable Hypersegmented Neuts Not Reportable Hyposegmented Neuts Not Reportable Hypogranular Neuts Not Reportable Smudge Cells Not Reportable Toxic Granulation Not Reportable Toxic Vacuolation Not Reportable Dohle Bodies Not Reportable Pelger-Huet Anomaly Not Reportable Isaura Rods Not Reportable Platelet Estimate Appears normal Clumped Platelets Not Reportable Plt Clumps, EDTA Not Reportable Large Platelets Not Reportable Giant Platelets Not Reportable Platelet Satelliting Not Reportable Plt Morphology Comment Not Reportable RBC Morphology Normal Dimorphic RBCs Not Reportable Polychromasia Not Reportable Hypochromasia Not Reportable Poikilocytosis Not Reportable Anisocytosis Not Reportable Microcytosis Not Reportable Macrocytosis Not Reportable Spherocytes Not Reportable Pappenheimer Bodies Not Reportable Sickle Cells Not Reportable Target Cells Not Reportable Tear Drop Cells Not Reportable Ovalocytes Not Reportable Helmet Cells Not Reportable [place] Bodies Not Reportable [place] Rings Not Reportable Marcello Cells Not Reportable Bite Cells Not Reportable Crenated Cell Not Reportable Elliptocytes Not Reportable Acanthocytes (Spur) Not Reportable Rouleaux Not Reportable Hemoglobin C Crystals Not Reportable Schistocytes Not Reportable Malaria parasites Not Reportable Grant Bodies Not Reportable Hem Pathologist Commnt No Sodium 136 L Potassium 3.9 Chloride 101.6 Carbon Dioxide 21 L Anion Gap 17 BUN 5 L Creatinine 0.4 L Estimated GFR > 60 BUN/Creatinine Ratio 13 Glucose 118 H Calcium 8.1 L Magnesium Total Bilirubin 0.40 AST 13 ALT 9 Alkaline Phosphatase 86 Total Protein 6.4 Albumin 3.1 L Albumin/Globulin Ratio 0.9 Syphilis IgG Antibody Non-reactive Blood Type Antibody Screen 02/08/19 02/09/19 19:40 00:36 WBC RBC Hgb Hct MCV MCH MCHC RDW Plt Count Add Manual Diff Total Counted Seg Neutrophils % Seg Neuts % (Manual) Band Neutrophils % Lymphocytes % (Manual) Reactive Lymphs % (Man) Monocytes % (Manual) Eosinophils % (Manual) Basophils % (Manual) Metamyelocytes % Myelocytes % Promyelocytes % Blast Cells % Nucleated RBC % Seg Neutrophils # Man Band Neutrophils # Lymphocytes # (Manual) Abs React Lymphs (Man) Monocytes # (Manual) Eosinophils # (Manual) Basophils # (Manual) Metamyelocytes # Myelocytes # Promyelocytes # Blast Cells # WBC Morphology Hypersegmented Neuts Hyposegmented Neuts Hypogranular Neuts Smudge Cells Toxic Granulation Toxic Vacuolation Dohle Bodies Pelger-Huet Anomaly Isaura Rods Platelet Estimate Clumped Platelets Plt Clumps, EDTA Large Platelets Giant Platelets Platelet Satelliting Plt Morphology Comment RBC Morphology Dimorphic RBCs Polychromasia Hypochromasia Poikilocytosis Anisocytosis Microcytosis Macrocytosis Spherocytes Pappenheimer Bodies Sickle Cells Target Cells Tear Drop Cells Ovalocytes Helmet Cells [place] Bodies [place] Rings Marcello Cells Bite Cells Crenated Cell Elliptocytes Acanthocytes (Spur) Rouleaux Hemoglobin C Crystals Schistocytes Malaria parasites Grant Bodies Hem Pathologist Commnt Sodium Potassium Chloride Carbon Dioxide Anion Gap BUN Creatinine Estimated GFR BUN/Creatinine Ratio Glucose Calcium Magnesium 4.40 H Total Bilirubin AST ALT Alkaline Phosphatase Total Protein Albumin Albumin/Globulin Ratio Syphilis IgG Antibody Blood Type O POSITIVE Antibody Screen Negative
[2019-02-09] MEDS ORDERED: PRENATAL VIT27-FE FUMARATE-FOLIC ACID VIT TAB PO SCH (10:00)
--- NOTE | 2019-02-09 11:16 | Progress Note ---
Assessment and Plan Called to room due to pt feeling pressure ROM noted on my arrival. Fluid is foul smelling. SVE 8,90,0 Ctx are regular. Epidural working Dr.Meziere gregg. - Patient Problems (1) Vaginal bleeding Onset Date: ~02/09/19 Current Visit: Yes Status: Acute (2) 28 weeks gestation of Onset Date: ~02/09/19 Current Visit: Yes Status: Acute (3) labor in third trimester Onset Date: ~02/09/19 Current Visit: Yes Status: Acute Qualifiers: Fetus number: single or unspecified fetus Subjective - Subjective Date of service: 02/09/19 (called urgently to the room Pt c/o urge to push; SROM noted on my arrival, foul odor) Principal diagnosis: IUP @ 28w6d labor Advanced dilatation Patient reports: vaginal bleeding (moderate amt of blood noted on pad and vagina), movement normal Objective - Vital Signs Vital Signs: Vital Signs - 12hr 02/08/19 02/08/19 02/08/19 23:16 23:21 23:26 Temperature Pulse Rate 90 88 90 Respiratory Rate Blood Pressure O2 Sat by Pulse 95 97 97 Oximetry 02/08/19 02/08/19 02/08/19 23:28 23:31 23:33 Temperature Pulse Rate 88 96 H 93 H Respiratory Rate Blood Pressure O2 Sat by Pulse 94 95 94 Oximetry 02/08/19 02/08/19 02/08/19 23:36 23:41 23:46 Temperature Pulse Rate 94 H 83 81 Respiratory Rate Blood Pressure O2 Sat by Pulse 97 96 94 Oximetry 02/08/19 02/08/19 02/08/19 23:47 23:51 23:54 Temperature Pulse Rate 98 H 96 H 93 H Respiratory Rate Blood Pressure 110/55 O2 Sat by Pulse 94 96 Oximetry 02/08/19 02/08/19 02/09/19 23:56 23:58 00:01 Temperature Pulse Rate 96 H 90 91 H Respiratory Rate Blood Pressure 121/56 111/53 128/67 O2 Sat by Pulse 97 95 Oximetry 02/09/19 02/09/19 02/09/19 00:02 00:04 00:06 Temperature Pulse Rate 93 H 93 H 87 Respiratory Rate Blood Pressure 115/55 108/53 109/53 O2 Sat by Pulse 94 96 Oximetry 12/02/09/19 02/09/19 00:08 00:10 00:11 Temperature Pulse Rate 85 86 88 Respiratory Rate Blood Pressure 108/53 106/52 O2 Sat by Pulse 94 95 Oximetry 02/09/19 02/09/19 02/09/19 00:12 00:16 00:17 Temperature Pulse Rate 90 91 H 85 Respiratory Rate Blood Pressure 107/54 104/50 O2 Sat by Pulse 96 93 Oximetry 02/09/19 02/09/19 02/09/19 00:21 00:22 00:26 Temperature Pulse Rate 88 82 85 Respiratory Rate Blood Pressure 102/51 O2 Sat by Pulse 95 94 Oximetry 02/09/19 02/09/19 02/09/19 00:27 00:31 00:34 Temperature Pulse Rate 85 86 81 Respiratory Rate Blood Pressure 103/54 100/52 O2 Sat by Pulse 94 95 94 Oximetry 02/09/19 02/09/19 02/09/19 00:36 00:37 00:39 Temperature Pulse Rate 84 82 85 Respiratory Rate Blood Pressure 102/54 O2 Sat by Pulse 95 94 Oximetry 02/09/19 02/09/19 02/09/19 00:41 00:46 00:47 Temperature Pulse Rate 81 77 78 Respiratory Rate Blood Pressure O2 Sat by Pulse 95 95 94 Oximetry 02/09/19 02/09/19 02/09/19 00:51 00:53 00:56 Temperature Pulse Rate 81 77 83 Respiratory Rate Blood Pressure 99/52 98/55 O2 Sat by Pulse 100 100 Oximetry 02/09/19 02/09/19 02/09/19 01:01 01:06 01:09 Temperature Pulse Rate 76 81 75 Respiratory Rate Blood Pressure 97/55 O2 Sat by Pulse 100 99 Oximetry 02/09/19 02/09/19 02/09/19 01:11 01:16 01:21 Temperature Pulse Rate 77 73 75 Respiratory Rate Blood Pressure O2 Sat by Pulse 97 99 100 Oximetry 02/09/19 02/09/19 02/09/19 01:24 01:26 01:31 Temperature Pulse Rate 72 70 74 Respiratory Rate Blood Pressure 93/54 O2 Sat by Pulse 99 100 Oximetry 02/09/19 02/09/19 02/09/19 01:36 01:40 01:41 Temperature Pulse Rate 69 69 69 Respiratory Rate Blood Pressure 96/52 O2 Sat by Pulse 100 100 Oximetry 02/09/19 02/09/19 02/09/19 01:46 01:51 01:54 Temperature Pulse Rate 83 85 77 Respiratory Rate Blood Pressure 93/53 O2 Sat by Pulse 99 99 Oximetry 02/09/19 02/09/19 02/09/19 01:56 01:58 02:01 Temperature Pulse Rate 79 84 83 Respiratory Rate Blood Pressure O2 Sat by Pulse 95 94 94 Oximetry 02/09/19 02/09/19 02/09/19 02:06 02:08 02:11 Temperature Pulse Rate 73 76 77 Respiratory Rate Blood Pressure 96/57 O2 Sat by Pulse 100 100 Oximetry 02/09/19 02/09/19 02/09/19 02:16 02:21 02:23 Temperature Pulse Rate 78 69 76 Respiratory Rate Blood Pressure 100/57 O2 Sat by Pulse 100 100 Oximetry 02/09/19 02/09/19 02/09/19 02:26 02:31 02:36 Temperature Pulse Rate 70 69 74 Respiratory Rate Blood Pressure O2 Sat by Pulse 100 100 98 Oximetry 02/09/19 02/09/19 02/09/19 02:38 02:41 02:46 Temperature Pulse Rate 69 69 68 Respiratory Rate Blood Pressure 96/56 O2 Sat by Pulse 99 99 Oximetry 02/09/19 02/09/19 02/09/19 02:51 02:53 02:56 Temperature Pulse Rate 66 76 75 Respiratory Rate Blood Pressure 98/56 O2 Sat by Pulse 99 100 Oximetry 02/09/19 02/09/19 02/09/19 03:01 03:06 03:09 Temperature Pulse Rate 82 80 80 Respiratory Rate Blood Pressure 103/59 O2 Sat by Pulse 99 99 Oximetry 02/09/19 02/09/19 02/09/19 03:11 03:16 03:21 Temperature Pulse Rate 75 83 83 Respiratory Rate Blood Pressure O2 Sat by Pulse 99 100 98 Oximetry 02/09/19 02/09/19 02/09/19 03:24 03:26 03:31 Temperature Pulse Rate 75 73 71 Respiratory Rate Blood Pressure 105/56 O2 Sat by Pulse 100 99 Oximetry 02/09/19 02/09/19 02/09/19 03:36 03:38 03:41 Temperature Pulse Rate 72 73 70 Respiratory Rate Blood Pressure 102/55 O2 Sat by Pulse 100 100 Oximetry 02/09/19 02/09/19 02/09/19 03:46 03:51 03:53 Temperature Pulse Rate 68 71 79 Respiratory Rate Blood Pressure 102/58 O2 Sat by Pulse 99 99 Oximetry 02/09/19 02/09/19 02/09/19 03:56 04:01 04:06 Temperature Pulse Rate 78 72 69 Respiratory Rate Blood Pressure O2 Sat by Pulse 97 98 99 Oximetry 02/09/19 02/09/19 02/09/19 04:09 04:11 04:16 Temperature Pulse Rate 73 74 72 Respiratory Rate Blood Pressure 98/55 O2 Sat by Pulse 98 98 Oximetry 02/09/19 02/09/19 02/09/19 04:21 04:24 04:26 Temperature Pulse Rate 73 79 82 Respiratory Rate Blood Pressure 101/59 O2 Sat by Pulse 97 96 Oximetry 02/09/19 02/09/19 02/09/19 04:31 04:36 04:38 Temperature Pulse Rate 84 79 83 Respiratory Rate Blood Pressure 99/58 O2 Sat by Pulse 98 99 Oximetry 02/09/19 02/09/19 02/09/19 04:41 04:46 04:51 Temperature Pulse Rate 84 82 79 Respiratory Rate Blood Pressure O2 Sat by Pulse 96 99 99 Oximetry 02/09/19 02/09/19 02/09/19 04:53 04:56 05:01 Temperature Pulse Rate 81 88 81 Respiratory Rate Blood Pressure 102/59 O2 Sat by Pulse 96 98 Oximetry 02/09/19 02/09/19 02/09/19 05:06 05:08 05:11 Temperature Pulse Rate 84 78 87 Respiratory Rate Blood Pressure 99/56 O2 Sat by Pulse 97 96 Oximetry 02/09/19 02/09/19 02/09/19 05:16 05:21 05:23 Temperature Pulse Rate 83 83 81 Respiratory Rate Blood Pressure 102/55 O2 Sat by Pulse 98 97 Oximetry 02/09/19 02/09/19 02/09/19 05:26 05:31 05:36 Temperature Pulse Rate 75 77 84 Respiratory Rate Blood Pressure O2 Sat by Pulse 100 97 97 Oximetry 02/09/19 02/09/19 02/09/19 05:38 05:41 05:46 Temperature Pulse Rate 84 82 79 Respiratory Rate Blood Pressure 100/59 O2 Sat by Pulse 95 95 Oximetry 02/09/19 02/09/19 02/09/19 05:51 05:53 05:56 Temperature Pulse Rate 82 83 87 Respiratory Rate Blood Pressure 110/61 O2 Sat by Pulse 99 96 Oximetry 02/09/19 02/09/19 02/09/19 06:01 06:03 06:06 Temperature Pulse Rate 81 82 77 Respiratory Rate Blood Pressure O2 Sat by Pulse 96 94 94 Oximetry 02/09/19 02/09/19 02/09/19 06:08 06:09 06:11 Temperature Pulse Rate 77 89 91 H Respiratory Rate Blood Pressure 100/58 O2 Sat by Pulse 94 96 Oximetry 02/09/19 02/09/19 02/09/19 06:16 06:21 06:23 Temperature Pulse Rate 88 82 83 Respiratory Rate Blood Pressure 102/58 O2 Sat by Pulse 94 96 Oximetry 02/09/19 02/09/19 02/09/19 06:26 06:30 06:31 Temperature Pulse Rate 98 H 94 H Respiratory 20 Rate Blood Pressure 107/57 O2 Sat by Pulse 96 97 Oximetry 02/09/19 02/09/19 02/09/19 06:36 06:38 06:40 Temperature Pulse Rate 89 91 H 102 H Respiratory Rate Blood Pressure 107/59 O2 Sat by Pulse 96 93 Oximetry 02/09/19 02/09/19 02/09/19 06:41 06:46 06:51 Temperature Pulse Rate 88 90 83 Respiratory Rate Blood Pressure O2 Sat by Pulse 96 95 95 Oximetry 02/09/19 02/09/19 02/09/19 06:53 06:56 06:59 Temperature Pulse Rate 88 84 89 Respiratory Rate Blood Pressure 103/56 O2 Sat by Pulse 96 94 Oximetry 02/09/19 02/09/19 02/09/19 07:01 07:06 07:08 Temperature Pulse Rate 90 89 88 Respiratory Rate Blood Pressure 107/57 O2 Sat by Pulse 99 98 Oximetry 02/09/19 02/09/19 02/09/19 07:11 07:15 07:16 Temperature 98.1 F Pulse Rate 85 90 Respiratory Rate Blood Pressure O2 Sat by Pulse 96 97 Oximetry 02/09/19 02/09/19 02/09/19 07:21 07:22 07:23 Temperature Pulse Rate 88 88 91 H Respiratory Rate Blood Pressure 103/57 O2 Sat by Pulse 96 94 Oximetry 02/09/19 02/09/19 02/09/19 07:26 07:31 07:36 Temperature Pulse Rate 86 97 H 92 H Respiratory Rate Blood Pressure O2 Sat by Pulse 96 97 96 Oximetry 02/09/19 02/09/19 02/09/19 07:38 07:41 07:46 Temperature Pulse Rate 88 96 H 100 H Respiratory Rate Blood Pressure 104/56 O2 Sat by Pulse 97 97 Oximetry 02/09/19 02/09/19 02/09/19 07:51 07:53 07:56 Temperature Pulse Rate 96 H 88 98 H Respiratory Rate Blood Pressure 109/59 O2 Sat by Pulse 97 96 Oximetry 02/09/19 02/09/19 02/09/19 08:01 08:06 08:08 Temperature Pulse Rate 83 89 86 Respiratory Rate Blood Pressure 108/57 O2 Sat by Pulse 97 97 Oximetry 02/09/19 02/09/19 02/09/19 08:11 08:16 08:21 Temperature Pulse Rate 87 95 H 92 H Respiratory Rate Blood Pressure O2 Sat by Pulse 96 97 96 Oximetry 02/09/19 02/09/19 02/09/19 08:23 08:26 08:30 Temperature Pulse Rate 91 H 89 Respiratory 20 Rate Blood Pressure 103/55 104/51 O2 Sat by Pulse 96 Oximetry 02/09/19 02/09/19 02/09/19 08:31 08:36 08:38 Temperature Pulse Rate 89 91 H 89 Respiratory Rate Blood Pressure 103/59 O2 Sat by Pulse 96 97 Oximetry 02/09/19 02/09/19 02/09/19 08:41 08:46 08:51 Temperature Pulse Rate 93 H 95 H 90 Respiratory Rate Blood Pressure O2 Sat by Pulse 97 97 97 Oximetry 02/09/19 02/09/19 02/09/19 08:53 08:56 09:01 Temperature Pulse Rate 96 H 95 H 92 H Respiratory Rate Blood Pressure 113/60 O2 Sat by Pulse 97 96 Oximetry 02/09/19 02/09/19 02/09/19 09:06 09:10 09:11 Temperature Pulse Rate 90 83 89 Respiratory Rate Blood Pressure 104/51 O2 Sat by Pulse 99 100 Oximetry 02/09/19 02/09/19 02/09/19 09:16 09:21 09:25 Temperature Pulse Rate 83 83 86 Respiratory Rate Blood Pressure 111/53 O2 Sat by Pulse 100 100 Oximetry 02/09/19 02/09/19 02/09/19 09:26 09:31 09:36 Temperature Pulse Rate 86 93 H 93 H Respiratory Rate Blood Pressure O2 Sat by Pulse 100 100 98 Oximetry 02/09/19 02/09/19 02/09/19 09:38 09:41 09:46 Temperature Pulse Rate 87 89 88 Respiratory Rate Blood Pressure 107/54 O2 Sat by Pulse 99 98 Oximetry 02/09/19 02/09/19 02/09/19 09:51 09:55 09:56 Temperature Pulse Rate 84 82 82 Respiratory Rate Blood Pressure 100/53 O2 Sat by Pulse 100 100 Oximetry 02/09/19 02/09/19 02/09/19 10:01 10:06 10:08 Temperature Pulse Rate 88 82 79 Respiratory Rate Blood Pressure 97/54 O2 Sat by Pulse 96 100 Oximetry 02/09/19 02/09/19 02/09/19 10:11 10:16 10:21 Temperature Pulse Rate 85 91 H 87 Respiratory Rate Blood Pressure O2 Sat by Pulse 100 100 99 Oximetry 02/09/19 02/09/19 02/09/19 10:23 10:26 10:30 Temperature Pulse Rate 83 88 Respiratory 18 Rate Blood Pressure 103/52 107/54 O2 Sat by Pulse 100 Oximetry 02/09/19 02/09/19 02/09/19 10:31 10:36 10:38 Temperature Pulse Rate 86 84 86 Respiratory Rate Blood Pressure 107/54 O2 Sat by Pulse 99 100 Oximetry 02/09/19 02/09/19 02/09/19 10:41 10:46 10:51 Temperature Pulse Rate 84 83 85 Respiratory Rate Blood Pressure O2 Sat by Pulse 100 100 100 Oximetry 02/09/19 02/09/19 02/09/19 10:56 11:01 11:06 Temperature Pulse Rate 85 84 90 Respiratory Rate Blood Pressure O2 Sat by Pulse 100 100 100 Oximetry 02/09/19 02/09/19 11:08 11:11 Temperature Pulse Rate 103 H 93 H Respiratory Rate Blood Pressure 109/59 O2 Sat by Pulse 100 Oximetry - Exam Breasts: deferred Cardiovascular: Regular rate Lungs: Normal air movement Abdomen: Present: normal appearance, soft. Absent: distention, tenderness Uterus: Present: normal FHR: auscultation normal Uterine Contraction Monitor Mode: External Cervical Dilatation: 8 Cervical Effacement Percentage: 100 station: 0 Uterine Contraction Pattern: Regular Uterine Tone Measurement Phase: Resting Uterine Contraction Intensity: Moderate Extremities: normal Deep Tendon Reflex Grade: Normal +2 - Labs Labs: Abnormal Labs 02/08/19 02/08/19 02/09/19 19:32 19:32 00:36 WBC 12.4 H RBC 3.25 L MCH 33 H Seg Neuts % (Manual) 93.0 H Lymphocytes % (Manual) 5.0 L Seg Neutrophils # Man 11.5 H Lymphocytes # (Manual) 0.6 L Sodium 136 L Carbon Dioxide 21 L BUN 5 L Creatinine 0.4 L Glucose 118 H Calcium 8.1 L Magnesium 4.40 H Albumin 3.1 L 02/09/19 09:51 WBC RBC MCH Seg Neuts % (Manual) Lymphocytes % (Manual) Seg Neutrophils # Man Lymphocytes # (Manual) Sodium Carbon Dioxide BUN Creatinine Glucose Calcium Magnesium 2.80 H Albumin Laboratory Results - last 24 hr 02/08/19 02/08/19 02/08/19 19:32 19:32 19:32 WBC 12.4 H RBC 3.25 L Hgb 10.7 Hct 31.2 MCV 96 MCH 33 H MCHC 34 RDW 14.2 Plt Count 230 Add Manual Diff Complete Total Counted 100 Seg Neutrophils % Picking Tech Seg Neuts % (Manual) 93.0 H Band Neutrophils % 0 Lymphocytes % (Manual) 5.0 L Reactive Lymphs % (Man) 0 Monocytes % (Manual) 2.0 Eosinophils % (Manual) 0 Basophils % (Manual) 0 Metamyelocytes % 0 Myelocytes % 0 Promyelocytes % 0 Blast Cells % 0 Nucleated RBC % Not Reportable Seg Neutrophils # Man 11.5 H Band Neutrophils # 0.0 Lymphocytes # (Manual) 0.6 L Abs React Lymphs (Man) 0.0 Monocytes # (Manual) 0.2 Eosinophils # (Manual) 0.0 Basophils # (Manual) 0.0 Metamyelocytes # 0.0 Myelocytes # 0.0 Promyelocytes # 0.0 Blast Cells # 0.0 WBC Morphology Not Reportable Hypersegmented Neuts Not Reportable Hyposegmented Neuts Not Reportable Hypogranular Neuts Not Reportable Smudge Cells Not Reportable Toxic Granulation Not Reportable Toxic Vacuolation Not Reportable Dohle Bodies Not Reportable Pelger-Huet Anomaly Not Reportable Isaura Rods Not Reportable Platelet Estimate Appears normal Clumped Platelets Not Reportable Plt Clumps, EDTA Not Reportable Large Platelets Not Reportable Giant Platelets Not Reportable Platelet Satelliting Not Reportable Plt Morphology Comment Not Reportable RBC Morphology Normal Dimorphic RBCs Not Reportable Polychromasia Not Reportable Hypochromasia Not Reportable Poikilocytosis Not Reportable Anisocytosis Not Reportable Microcytosis Not Reportable Macrocytosis Not Reportable Spherocytes Not Reportable Pappenheimer Bodies Not Reportable Sickle Cells Not Reportable Target Cells Not Reportable Tear Drop Cells Not Reportable Ovalocytes Not Reportable Helmet Cells Not Reportable Lucas-[place] Bodies Not Reportable [place] Rings Not Reportable Panther Cells Not Reportable Bite Cells Not Reportable Crenated Cell Not Reportable Elliptocytes Not Reportable Acanthocytes (Spur) Not Reportable Rouleaux Not Reportable Hemoglobin C Crystals Not Reportable Schistocytes Not Reportable Malaria parasites Not Reportable Grant Bodies Not Reportable Hem Pathologist Commnt No Sodium 136 L Potassium 3.9 Chloride 101.6 Carbon Dioxide 21 L Anion Gap 17 BUN 5 L Creatinine 0.4 L Estimated GFR > 60 BUN/Creatinine Ratio 13 Glucose 118 H Calcium 8.1 L Magnesium Total Bilirubin 0.40 AST 13 ALT 9 Alkaline Phosphatase 86 Total Protein 6.4 Albumin 3.1 L Albumin/Globulin Ratio 0.9 Syphilis IgG Antibody Non-reactive Blood Type Antibody Screen 02/08/19 02/09/19 02/09/19 19:40 00:36 09:51 WBC RBC Hgb Hct MCV MCH MCHC RDW Plt Count Add Manual Diff Total Counted Seg Neutrophils % Seg Neuts % (Manual) Band Neutrophils % Lymphocytes % (Manual) Reactive Lymphs % (Man) Monocytes % (Manual) Eosinophils % (Manual) Basophils % (Manual) Metamyelocytes % Myelocytes % Promyelocytes % Blast Cells % Nucleated RBC % Seg Neutrophils # Man Band Neutrophils # Lymphocytes # (Manual) Abs React Lymphs (Man) Monocytes # (Manual) Eosinophils # (Manual) Basophils # (Manual) Metamyelocytes # Myelocytes # Promyelocytes # Blast Cells # WBC Morphology Hypersegmented Neuts Hyposegmented Neuts Hypogranular Neuts Smudge Cells Toxic Granulation Toxic Vacuolation Dohle Bodies Pelger-Huet Anomaly Isaura Rods Platelet Estimate Clumped Platelets Plt Clumps, EDTA Large Platelets Giant Platelets Platelet Satelliting Plt Morphology Comment RBC Morphology Dimorphic RBCs Polychromasia Hypochromasia Poikilocytosis Anisocytosis Microcytosis Macrocytosis Spherocytes Pappenheimer Bodies Sickle Cells Target Cells Tear Drop Cells Ovalocytes Helmet Cells Lucas-[place]rie Bodies [place] Rings Marcello Cells Bite Cells Crenated Cell Elliptocytes Acanthocytes (Spur) Rouleaux Hemoglobin C Crystals Schistocytes Malaria parasites Grant Bodies Hem Pathologist Commnt Sodium Potassium Chloride Carbon Dioxide Anion Gap BUN Creatinine Estimated GFR BUN/Creatinine Ratio Glucose Calcium Magnesium 4.40 H 2.80 H Total Bilirubin AST ALT Alkaline Phosphatase Total Protein Albumin Albumin/Globulin Ratio Syphilis IgG Antibody Blood Type O POSITIVE Antibody Screen Negative
--- NOTE | 2019-02-09 11:37 | Event Note ---
Date: 02/09/19 Provider present at time of delivery. Live born male born. Queen Producer and NICU/Resp teams present at time of delivery. Baby delivered by the para operator Tj.
[2019-02-09] MEDS: OXYTOCIN 20 UNIT/1000ML DRIP 40,000 MILLIUNITS/2,000 ML BAG IV ONE ×2 (11:40→12:44)
[2019-02-09] MEDS ORDERED: MAGNESIUM HYDROXIDE (MOM) ORAL LIQD UDC PO PRN (11:49)
[2019-02-09] MEDS ORDERED: ONDANSETRON 4 MG/2 ML INJ IV PRN (11:49)
[2019-02-09] MEDS ORDERED: PROMETHAZINE 25 MG TAB PO PRN (11:49)
[2019-02-09] MEDS ORDERED: LANOLIN/ZINC/DIMETHICONE (LANSINOH) 7 GM TP PRN (11:49)
[2019-02-09] MEDS ORDERED: WITCH HAZEL/ GLYCERIN PAD TP PRN (11:49)
[2019-02-09] MEDS ORDERED: diphenhydrAMINE 25 MG CAP PO PRN (11:49)
--- NOTE | 2019-02-09 11:59 | Procedure Note ---
OB Delivery Note - Delivery Date of Delivery: 02/09/19 Surgeon: RACHEL BAL (present for delivery) Platform Loader: KARAN VALENCIA Estimated blood loss: 300cc - Vaginal Delivery presentation: vertex Delivery position: OA Intrapartum events: labor-<37 weeks, foul smelling fluid Delivery induction: none Delivery monitor: external FHT, external uterine Route of delivery: Delivery placenta: spontaneous Delivery cord: 3 umbilical vessels Episiotomy: none Delivery laceration: none Anesthesia: epidural Delivery comments: Called by pt to her room crying that she was in so much pain. SVE C,C,0. NICU team called. Everyone present for delivery. Dr Irvin and present for delivery. live born male over intact perineum. Crying and moving spontaneouly. Delayed cord clamping per Dr. Irvin's request. Cord blood obtained.Passed to NICU team. Placenta and membrane delivered complete and intact, 3 vessel cord. Pit IVFs. Cultures done on placenta and it was sent to pathology. Baby taken to NICU in stable condition. No assigned @ time of . Wgt 2-13 EBL 300. Pt remains LDR stable. - Infant A Infant Gender: Male (wgt 2-13)
[2019-02-09] MEDS: IBUPROFEN 600 MG TAB PO SCH (12:58)
[2019-02-09] MEDS ORDERED: OXYTOCIN 20 UNIT/1000ML DRIP 20 UNITS/1,000 ML BAG IV SCH ×2 (14:00→19:00)
[2019-02-09 23:58] LABS: Hematocrit 27.6 % (30.3-42.9); Hemoglobin 9.3 gm/dl (10.1-14.3)
[2019-02-10] MEDS: IBUPROFEN 600 MG TAB PO SCH (00:05)
[2019-02-10] MEDS ORDERED: TETANUS,DIPH,PERTUSS(ACELL) VACCINE 0.5 ML SYRINGE IM ONE (06:00)
--- NOTE | 2019-02-10 08:54 | Discharge Summary ---
Providers - Providers Date of Admission: 02/08/19 17:06 Date of discharge: 02/10/19 (pt asking to be d/c today) Attending physician: DAVINA FIGUEROA Primary care physician: DAVINA FIGUEROA Hospitalization Reason for admission: active labor, IUP - Delivery: Episiotomy: none Laceration: none Other procedures: none complications: none Discharge diagnosis: delivery [place] baby: male (stable in NICU) Hospital course: expectant mgt of labor uncomplicated vaginal delivery Pt OOB using breast pump VSS FF below umb Lochia small Perineum intact H&H9/27 no s/sx of anemia Doing well s/p vag delivery @ 28 weeks. P: d/c today with instructions. RTO 4 weeks PP care. Condition at discharge: Good Disposition: DC-01 TO HOME OR SELFCARE - Discharge Diagnoses (1) delivery Status: Acute Comment: RTO 4 weeks PP care Plan - Provider Discharge Summary Activity: routine, no sex for 6 weeks, no heavy lifting 4 weeks, no strenuous exercise Diet: routine Instructions: routine Additional instructions: [] Smoking cessation referral if applicable(refer to patient education folder for contact #) [] Refer to [facility]'s [facility] Booklet Call your doctor immediately for: * Fever > 100.5 * Heavy vaginal bleeding ( >1 pad per hour) * Severe persistent headache * Shortness of breath * Reddened, hot, painful area to leg or breast * Drainage or odor from incision. * Keep incision clean and dry at all times and follow doctor's instructions regarding bathing/showering - Follow up plan Follow up: DAVINA FIGUEROA MD [Primary Care Provider] - 03/12/19 (Please call [phone] to schedule your visit 4 weeks. Take Motrin/ibuprofen for cramping pain. Call with any concerns.) Forms: [facility] Discharge Summary
[2019-02-10] MEDS ORDERED: MEASLES, MUMPS & RUBELLA 12,500 UNIT/0.5 ML VACCINE SUB-Q ONE (11:49)
[2019-02-10 12:38] VITALS: BP 117/64
== END 2019-02-10 12:15 | disposition home or self-care (01) | DRG 807 ==
LOC: TRG 10:05 → LD 10:06 → TRG 10:06 → OBSVTOIN 17:06 → OB 02-09 18:33
PROVIDERS: ADMIT Obstetrics & Gynecology; ATTEND Obstetrics & Gynecology
PROC: 10E0XZZ Delivery of Products of Conception, External Approach (ICD-10-PCS; principal; 2019-02-09)
PROC: 3E0R3BZ Introduction of Anesthetic Agent into Spinal Canal, Percutaneous Approach (ICD-10-PCS; 2019-02-09)
PROC: 00HU33Z Insertion of Infusion Device into Spinal Canal, Percutaneous Approach (ICD-10-PCS; 2019-02-09)
PROC: 3E0234Z Introduction of Serum, Toxoid and Vaccine into Muscle, Percutaneous Approach (ICD-10-PCS; 2019-02-10)
PROC: 3E0134Z Introduction of Serum, Toxoid and Vaccine into Subcutaneous Tissue, Percutaneous Approach (ICD-10-PCS; 2019-02-10)
DX: O60.14X0 Preterm labor third trimester with preterm delivery third trimester, not applicable or unspecified (principal); Z37.0 Single live birth; O75.89 Other specified complications of labor and delivery; Z3A.28 28 weeks gestation of pregnancy; Z23 Encounter for immunization
CPT/HCPCS: 36415; 76805; 80053; 83735; 85007; 85014; 85018; 85025; 86592; 86850; 86900; 86901; 87075; 87116; 88307; G0378; J0290; J0595; J0702; J2590; J3105; J3475; J3490; J7120